=== PATIENT | female | born 1955 | race Caucasian/White ===

== ENCOUNTER 2022-02-22 09:45 | Outpatient (CLI) | payer MEDICARE, OTHER ==
--- NOTE | 2022-02-22 13:32 | DEXA Report ---
PROCEDURE: Dexa Spine and/or Hip INDICATIONS: POST MENOPAUSAL TECHNIQUE: Dual energy x-ray absorptiometry (DXA) was performed on a [employer] System. Regions measur ed are the AP Spine, femoral neck, and if needed forearm. COMPARISON: None. FINDINGS: Lumbar Spine: Bone Mineral Density 1.101 g/cm/cm,T score -0.7, normal Left Hip: Bone Mineral Density 0.909 g/cm/cm,T score -0.8, normal Left Femoral Neck: Bone Mineral Density 0.847 g/cm/cm, T score -1.4, osteopenia (T score greater or equal to -1.0: NORMAL) (T score from -1.1 to -2.4: OSTEOPENIA) (T score less than or equal to -2.5 to: OSTEOPOROSIS) Impression: Osteopenia. Patients with diagnosis of osteoporosis or osteopenia should have regular bone mineral density assess ment. For those eligible for Medicare, routine testing is allowed once every 2 years. Testing frequ ency can be increased for patients who have rapidly progressing disease or for those who are receivin g medical therapy to restore bone mass. Reviewed by: Demetria Bravo MD, PhD on 02/22/2022 1:30 PM PDT Approved by: Demetria Bravo MD, PhD on 02/22/2022 1:30 PM PDT Station ID: [id number]
== END 2022-02-22 09:46 | disposition home or self-care (01) ==
LOC: DI 09:45
PROVIDERS: ATTEND Family Medicine
DX: N95.9 Unspecified menopausal and perimenopausal disorder (principal); M85.88 Other specified disorders of bone density and structure, other site

== ENCOUNTER 2022-06-19 07:24 | Day surgery (SDC) | payer MEDICARE, OTHER ==
[2022-06-19] MEDS ORDERED: LACTATED RINGERS 1,000 ML IV ONE ×2 (07:35→09:05)
--- NOTE | 2022-06-19 08:14 | ANESTHESIA ---
Pre-Anesthesia VS, & Labs - Diagnosis screening - Procedure colonoscopy Vital Signs: Temp Pulse Resp BP Pulse Ox 36.2 C L 83 16 136/99 H 99 06/19/22 07:40 06/19/22 07:40 06/19/22 07:40 06/19/22 07:40 06/19/22 07:40 Height: 5 ft 6 in Weight (kg): 81.1 kg Body Mass Index: 28.8 BMI Classification: Overweight - NPO >8 hours - Is Patient ?: No Home Medications and Allergies Home Medications: Ambulatory Orders Thyroid,Pork [[place] Thyroid] 30 mg PO DAILY 06/12/22 terbinafine HCL [Terbinafine HCl] 1 tab PO DAILY 06/18/22 Thyroid,Pork [[place]ona Thyroid] 30 mg PO DAILY 06/12/22 terbinafine HCL [Terbinafine HCl] 1 tab PO DAILY 06/18/22 Allergies/Adverse Reactions: Allergies Allergy/AdvReac Type Severity Reaction Status Date / Time No Known Drug Allergies Allergy Verified 06/12/22 12:11 Anes History & Medical History - Anesthetic History Anesthesia Complications: reports: No previous complications - Medical History Cardiovascular: reports: None Pulmonary: reports: None Gastrointestinal: reports: None Urinary: reports: None Musculoskeletal: reports: Osteoarthritis Endocrine/Autoimmune: reports: HyPOthyroidism Skin: reports: None - Surgical History Orthopedic: reports: Knee replacement Exam General: Alert, Oriented x3 Dental: WNL Mallampati classification: I Respiratory: Lungs clear Cardiovascular: Regular rate Plan Anesthesia Type: Total IV Consent for Procedure(s) Verified and Reviewed: Yes Code Status: Attempt Resuscitation ASA classification: 2-Mild systemic disease Is this case an emergency?: No
[2022-06-19] MEDS ORDERED: PROPOFOL 500 MG/50 ML 500 MG/50 ML VIAL ONE (08:27)
[2022-06-19 09:24] VITALS: BP 103/79
--- NOTE | 2022-06-19 11:51 | ANESTHESIA POST OP EVALUATION ---
Anesthesia Post Eval - Post Anesthesia Eval Vitals: Last Vital Signs Temp 36.6 C 06/19/22 09:05 Pulse 64 06/19/22 09:23 Resp 16 06/19/22 09:23 BP 103/79 06/19/22 09:23 Pulse Ox 99 06/19/22 09:23 CV Function Including HR & BP: Stable Pain Control: Satisfactory Nausea & Vomiting: Negative Mental Status: Baseline Respiratory Status: Airway Patent Hydration Status: Satisfactory Anesthesia Complications: None
== END 2022-06-19 07:25 | disposition home or self-care (01) ==
LOC: SDS 07:24
PROVIDERS: ATTEND Surgery
PROC: 0DBK8ZX Excision of Ascending Colon, Via Natural or Artificial Opening Endoscopic, Diagnostic (ICD-10-PCS; principal; 2022-06-19 08:30)
DX: Z12.11 Encounter for screening for malignant neoplasm of colon (principal); D12.2 Benign neoplasm of ascending colon; K57.30 Diverticulosis of large intestine without perforation or abscess without bleeding; K64.8 Other hemorrhoids; Z80.0 Family history of malignant neoplasm of digestive organs; Z83.71 Family history of colonic polyps
CPT/HCPCS: 45380; J7120

== ENCOUNTER 2023-12-08 09:29 | Outpatient (CLI) | payer MEDICARE, OTHER ==
--- NOTE | 2023-12-08 11:42 | XRAY Report ---
PROCEDURE: Hips w/Pelvis 2-3V BL INDICATIONS: BILATERAL HIP PAIN TECHNIQUE: 3 view(s) of the hip were acquired. COMPARISON: None FINDINGS: Bones: No fractures or dislocations. Mild degenerative changes of the bilateral hips with joint spac e narrowing and marginal osteophytosis. No suspicious bony lesions. The visualized pelvic ring appea rs intact. Soft tissues: No suspicious soft tissue calcifications or masses. IMPRESSION: No acute bony abnormality. Reviewed by: Andrés Javed MD on 12/08/2023 11:41 AM PST Approved by: Andrés Javed MD on 12/08/2023 11:41 AM PST Station ID: [id number]
== END 2023-12-08 09:30 | disposition home or self-care (01) ==
LOC: DI.S 09:29
PROVIDERS: ATTEND Family Medicine
DX: M25.552 Pain in left hip (principal); M25.551 Pain in right hip

== ENCOUNTER 2024-04-16 09:45 | Outpatient (CLI) | payer MEDICARE, OTHER ==
--- NOTE | 2024-04-16 17:02 | DEXA Report ---
PROCEDURE: Dexa Spine and/or Hip INDICATIONS: OSTEOPENIA TECHNIQUE: Dual energy x-ray absorptiometry (DXA) was performed on a [employer] System. Regions measur ed are the AP Spine, femoral neck, and if needed forearm. COMPARISON: None FINDINGS: Lumbar Spine: Bone Mineral Density: 1.036 g/cm/cm,T score: -1.2. Left Femoral Neck: Bone Mineral Density: 0.844 g/cm/cm, T score: -1.4. Left Hip: Bone Mineral Density: 0.897 g/cm/cm,T score: -0.9. (T score greater or equal to -1.0: NORMAL) (T score from -1.1 to -2.4: OSTEOPENIA) (T score less than or equal to -2.5 to: OSTEOPOROSIS) Impression: By WHO criteria, this patient has mild osteopenia in the lumbar spine and femoral neck. Patients with diagnosis of osteoporosis or osteopenia should have regular bone mineral density assess ment. For those eligible for Medicare, routine testing is allowed once every 2 years. Testing frequ ency can be increased for patients who have rapidly progressing disease or for those who are receivin g medical therapy to restore bone mass. Reviewed by: Raeann Guthrie MD on 04/16/2024 5:01 PM PDT Approved by: Raeann Guthrie MD on 04/16/2024 5:01 PM PDT Station ID: [id number]
== END 2024-04-16 09:46 | disposition home or self-care (01) ==
LOC: DI 09:45
PROVIDERS: ATTEND Family Medicine
DX: M85.89 Other specified disorders of bone density and structure, multiple sites (principal); Z78.0 Asymptomatic menopausal state